=== PATIENT | female | born 1970 | race Caucasian/White ===

== ENCOUNTER → 2023-06-27 | Outpatient (CLI) | payer OTHER ==
[2023-06-28 07:07] LABS: MUMPS VIRUS IGG ANTIBODY 85.3 AU/mL (Immune >10.9); RUBELLA AB IGG-REFLAB 8.09 index (Immune >0.99)
== END | disposition home or self-care (01) ==
LOC: LABMN 12:39
PROVIDERS: ATTEND Internal Medicine
DX: Z02.1 Encounter for pre-employment examination (principal)
CPT/HCPCS: 86706; 86735; 86762; 86765; 86787